=== PATIENT | male | born 1955 | race Caucasian/White ===

== ENCOUNTER 2025-06-21 07:45 | Emergency (ER) | payer OTHER ==
[~2025-06-21] VITALS: Ht 185.4 cm; Wt 90.7 kg
[2025-06-21 07:57] VITALS: BP 144/88; O2SAT 96
[2025-06-21] MEDS ORDERED: LEVALBUTEROL HCL 1.25 MG/3 ML SOLUTION IH SCH (08:30)
[2025-06-21] MEDS ORDERED: IPRATROPIUM BROMIDE 0.5 MG/2.5 ML AMPUL.NEB IH SCH (08:30)
[2025-06-21] MEDS ORDERED: METHYLPREDNISOLONE SOD SUCC 125 MG VIAL IV ONE (08:30)
[2025-06-21] MEDS ORDERED: CEFTRIAXONE SODIUM 2,000 MG VIAL IV ONE (08:30)
[2025-06-21] MEDS ORDERED: BENZONATATE 200 MG CAPSULE PO ONE (08:30)
[2025-06-21 09:13] LABS: BASO % 0.4 % (0.1-1.2); EOS # 0.11 (0.04-0.54); EOS % 2.2 % (0.7-7.0); LYMPH # 1.53 (1.18-3.74); LYMPH % 30.3 % (19.3-53.1); MEAN PLATELET VOLUME 12.60 fl (9.4-12.4); MONO # 1.11 (0.24-0.82); NEUT # 2.26 (1.56-6.13); NEUT % 44.7 % (34.0-71.1); RED CELL DISTRIBUTION WIDTH 13.1 % (11.6-14.4)
[2025-06-21 09:23] LABS: ERYTHROCYTE SEDIMENTATION RATE 43 mm/hr (0-20)
[2025-06-21 09:39] LABS: INR 1.05
[2025-06-21 09:54] LABS: BUN CREA RATIO 18.0 (7.0-25.0); CREATININE SERUM 1.36 mg/dL (0.70-1.30); GFR 52.11; GLUCOSE FASTING 96.0 mg/dL (65-100); OSMOLALITY SERUM 280.0 MOSM/KG (275-295)
[2025-06-21 10:13] LABS: COVID-19 AG NEGATIVE (NEGATIVE)
[2025-06-21 10:19] LABS: MONO % 22.0 % (4.7-12.5)
[2025-06-21 10:20] LABS: BAND MAN 10.0 %; EOSINOPHIL MAN 2.0 %; LYMPHOCYTE MAN 26.0 %; MONOCYTE MAN 21.0 %; NEUTROPHILS MAN 37.0 %
== END 2025-06-21 16:35 | disposition home or self-care (01) ==
LOC: ER 07:46
PROVIDERS: General Practice
DX: J44.0 Chronic obstructive pulmonary disease with (acute) lower respiratory infection (principal); J22 Unspecified acute lower respiratory infection; I50.89 Other heart failure; Z20.822 Contact with and (suspected) exposure to COVID-19
CPT/HCPCS: 36415; 71046; 82803; 94640; 96365; 96366; 99283; J0696; J3490